=== PATIENT | male | born 1985 | race African-American/Black ===

== ENCOUNTER 2017-06-15 22:06 | Emergency (ER) | payer MEDICAID ==
[~2017-06-15] VITALS: Ht 180.3 cm; Wt 55.5 kg
[~2017-06-15 22:06] MED LIST: NORCO
[2017-06-15 23:45] LABS: BASOPHILS % 0.4 % (0.0-2.0); EOSINOPHILS % 0.6 % (0.0-5.0); HEMATOCRIT. 42.6 % (42.0-52.0); HEMOGLOBIN. 14.2 g/dL (14.0-18.0); LYMPHOCYTES % 22.1 % (20.0-50.0); MEAN CORPUSCULAR HEMOGLOBIN 28.3 pg (28.0-32.0); MEAN CORPUSCULAR VOLUME 84.8 fL (80.0-94.0); MONOCYTES % 6.9 % (2.0-8.0); PLATELET 352 x1000/uL (130-400); RED BLOOD CELL COUNT 5.03 mill/uL (4.7-6.1); RED CELL DISTRIBUTION WIDTH 14.3 % (11.6-14.6)
[2017-06-15 23:50] LABS: CHLORIDE 104 mEq/L (98-107)
[2017-06-15 23:54] LABS: ETHANOL BLOOD 117 mg/dL
[2017-06-16 04:30] VITALS: BP 122/68
[2017-06-16 06:15] LABS: CLARITY URINE TURBID (CLEAR); COLOR URINE YELLOW (YELLOW); KETONES URINE TRACE (NEGATIVE); LEUKOCYTE ESTERASE URINE 3+ (NEGATIVE); NITRITE URINE NEGATIVE (NEGATIVE); OCCULT BLOOD URINE 1+ (NEGATIVE); PH URINE 5.5 (4.5-8.0); PROTEIN URINE 2+ (NEGATIVE); SPECIFIC GRAVITY URINE 1.024 (1.005-1.030); UROBILINOGEN URINE 0.2 E.U./dL (0.2-1.0)
[2017-06-16 08:14] LABS: *AMPHETAMINES SCREEN URINE NEGATIVE (NEGATIVE); *BARBITURATES SCREEN URINE NEGATIVE (NEGATIVE); *BENZODIAZEPINES SCREEN URINE PRESUMTIVE POSITIVE (NEGATIVE); METHADONE URINE SCREEN NEGATIVE (NEGATIVE); OPIATES URINE SCREEN PRESUMTIVE POSITIVE (NEGATIVE)
[2017-06-16 08:15] LABS: *COCAINE SCREEN URINE NEGATIVE (NEGATIVE); CANNABINOID URINE SCREEN PRESUMTIVE POSITIVE (NEGATIVE); PHENCYCLIDINE URINE SCREEN NEGATIVE (NEGATIVE)
== END 2017-06-16 07:08 | disposition left against medical advice (07) ==
LOC: ER 22:06
DX: N39.0 Urinary tract infection, site not specified (principal); F10.129 Alcohol abuse with intoxication, unspecified; F17.200 Nicotine dependence, unspecified, uncomplicated; G82.20 Paraplegia, unspecified; F12.10 Cannabis abuse, uncomplicated; Z90.5 Acquired absence of kidney
CPT/HCPCS: 36415; 51702; 76705; 80053; 80305; 80307; 80329; 81003; 83690; 85025; 87077; 87086; 87186; 99285; G0482; A4315

== ENCOUNTER 2022-04-08 13:41 | Emergency (ER) | payer MEDICAID ==
[~2022-04-08] VITALS: Ht 170.2 cm; Wt 50.0 kg
[2022-04-08] MEDS ORDERED: xanax (13:57)
[2022-04-08] MEDS ORDERED: warfarin (13:57)
[2022-04-08] MEDS ORDERED: gabapentin (13:57)
[2022-04-08] MEDS ORDERED: IBUPROFEN 400MG TABLET PO ONE (14:15)
[2022-04-08] MEDS ORDERED: ACETAMINOPHEN 325MG TABLET PO ONE (14:15)
[2022-04-08] MEDS ORDERED: IBUPROFEN 400MG TABLET PO NR (16:30)
[2022-04-08] MEDS ORDERED: ACETAMINOPHEN 325MG TABLET PO NR (16:30)
[2022-04-08 17:03] LABS: BASOPHILS % 0.4 % (0.0-2.0); EOSINOPHILS % 0.6 % (0.0-5.0); HEMATOCRIT. 41.2 % (42.0-52.0); HEMOGLOBIN. 13.4 g/dL (14.0-18.0); LYMPHOCYTES % 20.2 % (20.0-50.0); MEAN CORPUSCULAR HEMOGLOBIN 28.8 pg (28.0-32.0); MEAN CORPUSCULAR VOLUME 88.2 fL (80.0-94.0); MEAN PLATELET VOLUME 8.4 fl (7.4-10.4); MONOCYTES % 5.2 % (2.0-8.0); NEUTROPHILS % 73.6 % (40.0-76.0); PLATELET 174 x1000/uL (130-400); RED BLOOD CELL COUNT 4.67 mill/uL (4.7-6.1); RED CELL DISTRIBUTION WIDTH 15.2 % (11.6-14.6)
[2022-04-08 17:13] LABS: CHLORIDE 98 mEq/L (98-107)
[2022-04-08 20:27] VITALS: BP 120/77
== END 2022-04-08 20:31 | disposition home or self-care (01) ==
LOC: ER 13:41
DX: B34.9 Viral infection, unspecified (principal); F41.9 Anxiety disorder, unspecified; G82.20 Paraplegia, unspecified; Z99.3 Dependence on wheelchair; Z86.718 Personal history of other venous thrombosis and embolism
CPT/HCPCS: 36415; 71045; 80053; 83880; 84484; 85025; 93005; 99285